=== PATIENT | male | born 1990 | race Caucasian/White ===

== ENCOUNTER 2018-06-01 16:37 | Emergency (ER) | payer SELFPAY ==
[2018-06-01] MEDS ORDERED: AZITHROMYCIN 250 MG TABLET PO ONE (16:48)
--- NOTE | 2018-06-01 16:49 | PDOC ---
Rapid Medical Evaluation Time Seen by Provider: 06/01/18 16:46 Medical Evaluation: 06/01/18 16:46 I have performed a brief in-person evaluation of this patient. The patient presents with a chief complaint of:burning on urination, partner has chlamydia Pertinent physical exam findings:NAD I have ordered the following:UA, GC, rocephin and zithromax HIV testing The patient will proceed to the ED for further evaluation. Discharge Disposition - Diagnosis STD exposure - Referrals - Patient Instructions - Post Discharge Activity
[2018-06-01 16:50] VITALS: BP 132/89; PULSE 85; TEMP 98.2; BMI 38.0
[2018-06-01] MEDS ORDERED: AZITHROMYCIN 250 MG TABLET ONE (17:33)
--- NOTE | 2018-06-01 17:38 | PDOC ---
History of Present Illness - General Chief Complaint: Penile Drainage Stated Complaint: PERSONAL Time Seen by Provider: 06/01/18 16:46 History Source: Patient Exam Limitations: No Limitations - History of Present Illness Travel History: No Initial Comments: 06/01/18 17:43 Patient states had unprotected sex with his ex-friend who contacted him to report she has Chlamydia infection. Patient states the past 2 days has had some redness, and whitish clear drainage from his penis with some dysuria. Denies swelling, tenderness to his testicles or penis, no lymphadenopathy. No history of STDs. Denies fever, abdominal pain, or any other illness currently. Timing/Duration: reports: getting worse Quality: reports: mild Past History - Travel Traveled outside of the country in the last 30 days: No Close contact w/someone who was outside of country & ill: No - Past Medical History Allergies/Adverse Reactions: Allergies Allergy/AdvReac Type Severity Reaction Status Date / Time No Known Allergies Allergy Verified 06/01/18 16:47 Home Medications: Ambulatory Orders NK [No Known Home Medication] 06/01/18 COPD: No - Immunization History Immunization Up to Date: Yes - Suicide/Smoking/Psychosocial Hx Smoking History: Never smoked Hx Alcohol Use: No Drug/Substance Use Hx: No Review of Systems - Review of Systems Able to Perform ROS?: Yes Is the patient limited Cambodian proficient: Yes Constitutional: Yes: Symptoms Reported, See HPI, Fever, Malaise HEENTM: Yes: See HPI. No: Symptoms Reported Respiratory: Yes: See HPI. No: Symptoms reported : Yes: Symptoms Reported, See HPI, Burning, Dysuria, Discharge *Physical Exam - Vital Signs Last Vital Signs Temp Pulse Resp BP Pulse Ox 98.2 F 85 16 132/89 99 06/01/18 16:47 06/01/18 16:47 06/01/18 16:47 06/01/18 16:47 06/01/18 16:47 - Physical Exam General Appearance: Yes: Appropriately Dressed, Apparent Distress HEENT: positive: AMY, Normal ENT Inspection, TMs Normal, Pharynx Normal Neck: positive: Supple. negative: Tender Respiratory/Chest: positive: Lungs Clear Gastrointestinal/Abdominal: positive: Normal Bowel Sounds, Soft. negative: Tender Male Genitalia: positive: normal genitalia, discharge. negative: testicular tenderness, testicular mass, epididymus tender, inguinal hernia, hematuria Extremity: positive: Normal Capillary Refill, Normal Inspection, Normal Range of Motion Integumentary: positive: Dry, Warm, Pale Neurologic: positive: nps II-XII NML intact, Fully Oriented, Alert, Normal Mood/ Affect, Normal Response, Motor Strength 5/5 Progress Note - Progress Note Progress Note: Medicated with 1 g of Zithromax to treat chlamydia, medicated with 250 mg of Rocephin IM for gonorrhea. Patient understands syphilis gonorrhea and chlamydia testing will not be resulted for 3-5 days to to send out status, and also understand HIV testing today was negative. Patient encouraged to follow-up with private physician/clinic for repeat testing and herpes testing as needed and reenforcement need for condom use at all times *DC/Admit/Observation/Transfer Diagnosis at time of Disposition: STD exposure - Discharge Dispostion Disposition: HOME Condition at time of disposition: Stable Decision to Admit order: No - Referrals Referrals: [facility] ([facility]) [Outside] - Patient Instructions Printed Discharge Instructions: DI for Chlamydia Additional Instructions: You been treated today with azithromycin 1 g by mouth for treatment of presumed chlamydia You have been treated with Rocephin 250 mg injection for treatment of presumned gonorrhea The syphilis test, gonorrhea and chlamydia testing will not be completed for the next few days. You may call [phone] and leave message for return phone call with lab results. Be sure to be clear with your name, birthdate, and phone number Or HIV testing today was negative, however he will need retesting in 3-6 months to confirm negativity Always use condoms with the partners Followup with [employer] DIRECTOR or PMD in one week for reevaluation and retesting. - Post Discharge Activity Forms/Work/School Notes: Back to Work
[2018-06-01 17:39] LABS: EPI CELLS 0.7 /HPF (0-5); PH,URINE 5.5 (5.0-8.0); URINE APPEARANCE CLEAR; URINE BACTERIA 3.4 /hpf (NEGATIVE); URINE BILIRUBIN NEGATIVE (NEGATIVE); URINE CASTS 1 /hpf (0-8); URINE COLOR YELLOW; URINE GLUCOSE (UA) NEGATIVE (NEGATIVE); URINE KETONE NEGATIVE (NEGATIVE); URINE LEUK ESTERASE NEGATIVE (NEGATIVE); URINE NITRITE NEGATIVE (NEGATIVE); URINE PROTEIN NEGATIVE (NEGATIVE); URINE RBC 1 /hpf (0-4); URINE UROBILINOGEN 0.2 mg/dL (0.2-1.0); URINE WBC 1 /hpf (0-5)
== END 2018-06-01 18:50 | disposition home or self-care (01) ==
LOC: JERFT 16:37
DX: Z11.3 Encounter for screening for infections with a predominantly sexual mode of transmission (principal); N48.9 Disorder of penis, unspecified
CPT/HCPCS: 36415; 81003; 86593; 87086; 87389; 87491; 87591; 99281-25